=== PATIENT | male | born 1940 | race Caucasian/White ===

== ENCOUNTER 2018-01-18 05:33 | Observation (INO) | payer MEDICARE ==
[~2018-01-18] VITALS: Ht 177.8 cm; Wt 101.0 kg
[2018-01-18] VITALS (16 sets, daily range): BP systolic 124–181; BP diastolic 69–93
[2018-01-18] MEDS ORDERED: LABE300T2 PO (07:43)
[2018-01-18] MEDS ORDERED: BENA40TA9 PO (07:45)
[2018-01-18] MEDS ORDERED: AMLO10TA PO (07:45)
[2018-01-18 08:28] LABS: BASOPHILS % (AUTO) 0.8 % (0-1); EOSINOPHILS # (AUTO) 0.1 X10'3 (0-0.9); EOSINOPHILS % (AUTO) 2.3 % (0-6); HEMATOCRIT 41.6 % (42.0-52.0); HEMOGLOBIN 14.1 g/dl (14.0-17.9); LYMPHOCYTES % (AUTO) 21.4 % (21-51); MEAN CORPUSCULAR HEMOGLOBIN 30.8 PG (27.0-31.0); MEAN CORPUSCULAR HGB CONC 33.8 % (33.0-36.5); MEAN PLATELET VOLUME 7.9 FL (7.4-10.4); MONOCYTES # (AUTO) 0.6 X10'3 (0-0.9); MONOCYTES % (AUTO) 12.2 % (2-12); NEUTROPHILS # (AUTO) 3.1 X10'3 (1.8-7.7); NEUTROPHILS % (AUTO) 63.3 % (42-75); PLATELET COUNT 233 X10'3 (140-440); RED BLOOD COUNT 4.57 X10'6 (4.70-6.10); WHITE BLOOD COUNT 4.9 X10'3 (4.5-11.0)
[2018-01-18 08:29] LABS: ALANINE AMINOTRANSFERASE 38 U/L (12-78); ALBUMIN 3.8 G/DL (3.4-5.0); ALBUMIN/GLOBULIN RATIO 1.1 (1.1-1.5); ALKALINE PHOSPHATASE 69 IU/L (46-116); ANION GAP 13 (8-16); ASPARTATE AMINO TRANSFERASE 34 U/L (10-37); BILIRUBIN,TOTAL 0.7 MG/DL (0.1-1.0); BLOOD UREA NITROGEN 12 MG/DL (7-18); BUN/CREATININE RATIO 14.5 (5.4-32.0); CHLORIDE 103 MMOL/L (99-107); CREATININE 0.83 MG/DL (0.60-1.10); GLUCOSE 97 MG/DL (70-104); POTASSIUM 3.9 MMOL/L (3.5-5.1); SODIUM 139 MMOL/L (135-145); TOTAL CARBON DIOXIDE 22.7 MMOL/L (24-32); TOTAL PROTEIN 7.4 G/DL (6.4-8.2); eGFR 90 ML/MIN
[2018-01-18] MEDS ORDERED: diphenhydrAMINE 25mg capsule PO PRN (10:35)
[2018-01-18] MEDS ORDERED: ondansetron/PF 4mg/2ml inj IV PRN ×2 (10:35→12:20)
[2018-01-18] MEDS ORDERED: morphine 2 MG/ML inj. syringe IV PRN (10:35)
[2018-01-18] MEDS ORDERED: potassium Cl 40MEQ/NS 500ml 500 ML IV PRN ×2 (10:35)
[2018-01-18] MEDS ORDERED: potassium Cl 20 mEq SR tablet PO PRN ×2 (10:35)
[2018-01-18] MEDS: K and/or MAG REPLACEMENT MC SCH (10:35)
[2018-01-18] MEDS ORDERED: mag hydrox/Alum hydrox/simeth 30ml oral suspension PO PRN (10:35)
[2018-01-18] MEDS ORDERED: HYDROcodone/acetaminophen 5mg/325mg tablet PO PRN (10:35)
[2018-01-18] MEDS ORDERED: magnesium 4gm in 100ml NS 100 ML IV PRN (10:35)
[2018-01-18] MEDS ORDERED: magnesium Cl slow-release 64mg tablet PO PRN (10:35)
[2018-01-18] MEDS ORDERED: magnesium hydroxide 30ml (MOM) UD suspension PO PRN (10:35)
[2018-01-18] MEDS ORDERED: acetaminophen 325mg tablet PO PRN ×2 (10:35)
[2018-01-18] MEDS ORDERED: fentaNYL/PF 50MCG/1 ML 2ML syringe ONE ×2 (11:15→12:28)
[2018-01-18] MEDS ORDERED: propofol inj 20 ML IV ONE (11:15)
[2018-01-18] MEDS ORDERED: LIDOcaine 2% (20mg/ml) 5ml vial ONE (11:15)
[2018-01-18] MEDS ORDERED: ceFAZolin 2gm in dextrose, iso 100 ML IV ONE (11:20)
[2018-01-18] MEDS ORDERED: sevoflurane 250ml liquid IH ONE (11:25)
[2018-01-18 11:41] LABS: INR 1.1 INR; PARTIAL THROMBOPLASTIN TIME 64 SECONDS (22-32); PROTHROMBIN TIME 11.3 SECONDS (9.0-12.0)
[2018-01-18] MEDS ORDERED: succinylcholine 20mg/ml inj IV ONE (11:55)
[2018-01-18] MEDS ORDERED: dexamethasone sod phosphate 4mg/ml inj. ONE (11:55)
[2018-01-18] MEDS ORDERED: rocuronium 10mg/ml inj IV ONE (11:55)
[2018-01-18] MEDS ORDERED: clindamycin phosphate 150mg/ml inj. ONE (12:10)
[2018-01-18] MEDS ORDERED: gentamicin 40 MG/1 ML inj ONE (12:10)
[2018-01-18] MEDS ORDERED: ringers solution, lacted 1,000 ML IV SCH (12:17)
[2018-01-18] MEDS ORDERED: morphine 4 MG/ML inj SYRINge IV PRN (12:20)
[2018-01-18] MEDS ORDERED: HYDROmorphone inj. 0.5 MG/0.5 ML DISP.SYRIN IV PRN ×2 (12:20)
[2018-01-18] MEDS ORDERED: cefazolin/dext.iso 2gm/50ml 50 ML IV ONE (12:20)
[2018-01-18] MEDS ORDERED: sugammadex 200mg/2ml injection IV ONE (12:24)
[2018-01-18] MEDS ORDERED: ondansetron/PF 4mg/2ml inj ONE (12:38)
[2018-01-18] MEDS: potassium CL 20mEq in D5-1/2NS 1,000 ML IV SCH ×2 (12:38→20:38)
[2018-01-18] MEDS ORDERED: neostigmine methylsulfate 1 MG/ML 10ml vial ONE (12:38)
[2018-01-18] MEDS ORDERED: glycopyrrolate 0.2mg/ml inj ONE (12:38)
[2018-01-18] MEDS ORDERED: HYDROcodone/acetaminophen 10/325mg tab PO PRN (12:40)
[2018-01-18] MEDS ORDERED: HYDROmorphone 1 mg/ml syringe IV PRN (12:40)
[2018-01-18] MEDS: normal saline 1000ml 1,000 ML IV SCH ×2 (13:00→20:34)
[2018-01-18] MEDS: ceFAZolin inj. 1,000 MG in dextrose 5%-water 50ml 50 ML IV SCH (16:00)
[2018-01-18] MEDS ORDERED: zolpidem 5mg tablet PO PRN (17:05)
[2018-01-18] MEDS ORDERED: non-formulary drug (Benazepril HCl 1 TAB) PO SCH (20:00)
[2018-01-18] MEDS ORDERED: non-formulary drug (Labetalol Hcl 1 TAB) PO SCH (21:00)
[2018-01-18] MEDS: labetalol 100mg tablet PO SCH (21:25)
[2018-01-18] MEDS: lisinopril 20mg tablet PO SCH (21:25)
[2018-01-19] VITALS: BP 146/70
[2018-01-19] MEDS: ceFAZolin inj. 1,000 MG in dextrose 5%-water 50ml 50 ML IV SCH ×2 (00:08→09:42)
[2018-01-19] MEDS: potassium CL 20mEq in D5-1/2NS 1,000 ML IV SCH ×2 (04:38→12:38)
[2018-01-19] MEDS: normal saline 1000ml 1,000 ML IV SCH (04:41)
[2018-01-19 05:07] LABS: BASOPHILS % (AUTO) 0.2 % (0-1); EOSINOPHILS # (AUTO) 0.1 X10'3 (0-0.9); EOSINOPHILS % (AUTO) 1.2 % (0-6); HEMATOCRIT 36.6 % (42.0-52.0); HEMOGLOBIN 12.2 g/dl (14.0-17.9); LYMPHOCYTES # (AUTO) 1.4 X10'3 (1.1-4.8); LYMPHOCYTES % (AUTO) 20.2 % (21-51); MEAN CORPUSCULAR HEMOGLOBIN 30.4 PG (27.0-31.0); MEAN CORPUSCULAR HGB CONC 33.3 % (33.0-36.5); MEAN CORPUSCULAR VOLUME 91.4 FL (78-98); MONOCYTES # (AUTO) 0.9 X10'3 (0-0.9); MONOCYTES % (AUTO) 12.3 % (2-12); NEUTROPHILS # (AUTO) 4.7 X10'3 (1.8-7.7); NEUTROPHILS % (AUTO) 66.1 % (42-75); PLATELET COUNT 216 X10'3 (140-440); RED CELL DISTRIBUTION WIDTH 15.1 % (11.5-14.5); WHITE BLOOD COUNT 7.2 X10'3 (4.5-11.0)
[2018-01-19 08:00] VITALS: BP 158/72
[2018-01-19] MEDS: K and/or MAG REPLACEMENT MC SCH (08:00)
[2018-01-19] MEDS ORDERED: amLODIPine 5mg tablet PO SCH (08:00)
[2018-01-19] MEDS ORDERED: non-formulary drug (Amlodipine Besylate 1 TABLET) PO SCH (08:00)
[2018-01-19] MEDS: labetalol 100mg tablet PO SCH ×2 (09:44→13:06)
[2018-01-19] MEDS: lisinopril 20mg tablet PO SCH (09:45)
[2018-01-19 11:46] VITALS: BP 154/72
[2018-01-19] MEDS ORDERED: HYDR-3972 PO (12:30)
== END 2018-01-19 14:13 | disposition home or self-care (01) ==
LOC: ER 05:35 → EEVIPCON 05:35 → SUR 3N 07:31
PROVIDERS: ADMIT Family Medicine; ATTEND Family Medicine
DX: T18.5XXA Foreign body in anus and rectum, initial encounter (principal); I10 Essential (primary) hypertension; Z60.2 Problems related to living alone; Z87.891 Personal history of nicotine dependence; X58.XXXA Exposure to other specified factors, initial encounter; Y93.89 Activity, other specified; Y92.89 Other specified places as the place of occurrence of the external cause; Y99.8 Other external cause status
CPT/HCPCS: 36415; 49402; 71045; 74018; 80053; 83735; 84484; 85025; 85610; 85730; 87070; 93005; 96365; 96366; 99284; A6223; A6449; C9399; G0378; J0330; J0690; J1100; J1580; J2001; J2405; J2704; J2710; J3010; J3490; J7030; J7060; J7120; A7000